=== PATIENT | female | born 1980 | race Caucasian/White ===

== ENCOUNTER → 2022-09-11 | Outpatient (CLI) | payer OTHER | LOC: M WHC 13:59 | PROVIDERS: ATTEND Nurse Practitioner | DX: Z12.31 Encounter for screening mammogram for malignant neoplasm of breast (principal) ==

== ENCOUNTER 2022-09-21 00:48 | Emergency (ER) | payer OTHER ==
[2022-09-21 00:51] VITALS: BP 142/78
[2022-09-21] MEDS ORDERED: CEFD300C41 (01:00)
[2022-09-21] MEDS ORDERED: CIPRODEX OTIC SUSP 7.5ML AD ONE (05:20)
[2022-09-21] MEDS ORDERED: CIPR7.5D5 AD (05:22)
== END 2022-09-21 05:49 | disposition home or self-care (01) ==
LOC: M ED 00:48
DX: H72.91 Unspecified perforation of tympanic membrane, right ear (principal)

== ENCOUNTER → 2023-09-13 | Outpatient (CLI) | payer OTHER ==
[~2023-09-13] MED LIST: CEFD1CAP9; CIPR7.5D5 AD
== END ==
LOC: M WHC 09:06
PROVIDERS: ATTEND Physician Assistant
DX: Z12.31 Encounter for screening mammogram for malignant neoplasm of breast (principal)

== ENCOUNTER → 2024-01-30 | Outpatient (REF) | payer OTHER | LOC: M LAB REF 13:33 | PROVIDERS: ATTEND Plastic Surgery Surgery of the Hand | DX: L90.5 Scar conditions and fibrosis of skin (principal); L98.7 Excessive and redundant skin and subcutaneous tissue ==

== ENCOUNTER → 2024-03-06 | Outpatient (CLI) | payer OTHER ==
[~2024-03-06] MED LIST changes: +GASTROGRAFIN SOLUTION 30ML As Ordered ONE; +ISOVUE-370 76% 100ML VIAL As Ordered ONE
== END ==
LOC: M RAD 15:28
PROVIDERS: ATTEND Physician Assistant
DX: R10.12 Left upper quadrant pain (principal)

== ENCOUNTER 2024-08-22 07:47 | Day surgery (SDC) | payer OTHER ==
[~2024-08-22] VITALS: Ht 167.6 cm; Wt 55.8 kg
[~2024-08-22 07:47] MED LIST changes: -GASTROGRAFIN SOLUTION 30ML As Ordered ONE; -ISOVUE-370 76% 100ML VIAL As Ordered ONE; +PANT20TA6 PO; +PRAZ5CAP PO
[2024-08-22] MEDS ORDERED: LIDOCAINE 2% 100MG/5ML SDV (FOR ANES.) As Ordered ONE (08:28)
[2024-08-22] MEDS ORDERED: propofoL 200 MG/20 ML VIAL As Ordered ONE (08:28)
[2024-08-22] MEDS ORDERED: fentaNYL 100 MCG/2 ML INJECTION As Ordered ONE (08:29)
[2024-08-22 09:42] VITALS: BP 117/70; O2SAT 99
== END 2024-08-22 09:47 | disposition home or self-care (01) ==
LOC: M OPP 07:47
PROVIDERS: ATTEND Surgery
DX: R10.12 Left upper quadrant pain (principal); Z91.048 Other nonmedicinal substance allergy status; Z79.899 Other long term (current) drug therapy
CPT/HCPCS: 43239; 88305; J3010